=== PATIENT | female | born 1995 | race Two or more races ===

== ENCOUNTER 2020-02-24 21:27 | Emergency (ER) | payer BC ==
[~2020-02-24] VITALS: Ht 160 cm; Wt 64.9 kg
[2020-02-24] MEDS ORDERED: LACTATED RINGER'S 1,000 ML IV ONE ×2 (22:54→23:15)
[2020-02-24 23:14] LABS: Urine Bacteria FEW /hpf (None Seen); Urine Blood Negative /uL (Negative); Urine Mucus FEW (None Seen); Urine WBC 1 /hpf (0 - 5)
[2020-02-24 23:40] LABS: Amphetamine Screen, Urine POSITIVE (NEGATIVE); Barbiturate Scree,Urine NEGATIVE (NEGATIVE); Benzodiazephine Screen, Urine NEGATIVE (NEGATIVE); Cannabinoid Screen, Urine NEGATIVE (NEGATIVE); Cocaine Screen, Urine NEGATIVE (NEGATIVE); Opiate Scree,Urine NEGATIVE (NEGATIVE); Phencyclidine Screen, Urine NEGATIVE (NEGATIVE)
[2020-02-25 00:18] LABS: Basophils # (auto) 0 10 ^3/uL (0-0.2); Basophils % (auto) 0.2 % (0.0-2.0); Eosinophils # (auto) 0 10 ^3/uL (0-0.8); Eosinophils % (auto) 0.5 % (0.0-7.0); Hematocrit 25.4 % (36.0-46.0); Hemoglobin 8.7 g/dL (12.2-16.2); Lymphocytes # (auto) 1.2 10 ^3/uL (0.4-5.4); Lymphocytes % (auto) 17.8 % (10.0-50.0); Mean Corpuscular Hemoglobin 27.1 pg (28.0-32.0); Mean Corpuscular Hgb Conc. 34.3 g/dL (32.0-36.0); Mean Corpuscular Volume 78.9 fL (80.0-100.0); Monocytes # (auto) 0.4 10 ^3/uL (0-1.3); Monocytes % (auto) 6.3 % (0.0-12.0); Neutrophils # (auto) 5.2 10 ^3/uL (1.6-8.6); Neutrophils % (auto) 75.2 % (37.0-80.0); Nucleated Red Blood Cells % 0.4 %; Platelet Count (auto) 196 10^3/uL (140-450); Red Blood Cells 3.22 10^6/uL (4.0-5.20); Red Cell Distribution Width 14.6 % (11.8-14.3); White Blood Cell 6.9 10^3/uL (4.4-10.8)
[2020-02-25 03:56] LABS: Albumin 1.7 g/dL (3.4-5.0); Calcium 7.8 mg/dL (8.5-10.1); Potassium 3.4 mmol/L (3.5-5.1)
[2020-02-25 04:00] LABS: BUN/Creatinine Ratio 27.1; Bilirubin, Total 0.1 mg/dL (0.2-1.0); Total Protein 5.3 g/dL (6.4-8.2)
[2020-02-26 03:07] LABS: Rubella Antibodies, IgG <0.90 index (Immune >0.99)
[2020-02-26 05:06] LABS: RPR Non Reactive (Non Reactive)
== END 2020-02-24 23:36 | disposition home or self-care (01) ==
LOC: ER 21:27
DX: O26.893 Other specified pregnancy related conditions, third trimester (principal); O9A.513 Psychological abuse complicating pregnancy, third trimester; F15.10 Other stimulant abuse, uncomplicated; R10.9 Unspecified abdominal pain; Z3A.33 33 weeks gestation of pregnancy; Z20.828 Contact with and (suspected) exposure to other viral communicable diseases
CPT/HCPCS: 36415; 76805; 80053; 80307; 81001; 85025; 86592; 86703; 86762; 86850; 86900; 86901; 87340; 87426; 99284; C9803; U0003

== ENCOUNTER 2020-02-24 21:44 | Observation (INO) | payer BC, MEDICAID | END 2020-02-25 04:07 | disposition home or self-care (01) | LOC: LDRP 21:44 | PROVIDERS: ADMIT Specialist; ATTEND Specialist | DX: O26.893 Other specified pregnancy related conditions, third trimester (principal); R10.9 Unspecified abdominal pain; O21.2 Late vomiting of pregnancy; O09.33 Supervision of pregnancy with insufficient antenatal care, third trimester; O99.323 Drug use complicating pregnancy, third trimester; F11.90 Opioid use, unspecified, uncomplicated; O99.343 Other mental disorders complicating pregnancy, third trimester; F31.9 Bipolar disorder, unspecified; F41.9 Anxiety disorder, unspecified; F43.10 Post-traumatic stress disorder, unspecified; F20.9 Schizophrenia, unspecified; F12.90 Cannabis use, unspecified, uncomplicated; O99.013 Anemia complicating pregnancy, third trimester; D64.9 Anemia, unspecified; O99.333 Smoking (tobacco) complicating pregnancy, third trimester; F17.210 Nicotine dependence, cigarettes, uncomplicated; Z3A.33 33 weeks gestation of pregnancy | CPT/HCPCS: 59025; 76817; 81002; 94760; 96360; G0378 ==

== ENCOUNTER 2023-11-16 19:40 | Emergency (ER) | payer MEDICAID, OTHER ==
[~2023-11-16] VITALS: Ht 157.5 cm; Wt 65.0 kg
[2023-11-16 20:12] VITALS: BP 114/75; PULSE 79; RESP 18; TEMP 98.7; O2SAT 98
[2023-11-16] MEDS ORDERED: CLOTCRE3 EX (22:21)
== END 2023-11-16 22:42 | disposition home or self-care (01) ==
LOC: ER 19:40
DX: B35.4 Tinea corporis (principal)

== ENCOUNTER 2024-03-02 13:29 | Emergency (ER) | payer MEDICAID ==
[~2024-03-02] VITALS: Ht 157.5 cm; Wt 60.0 kg
[~2024-03-02 13:29] MED LIST: CLOTCRE3 EX
[2024-03-02 14:55] VITALS: BP 99/73; PULSE 69; RESP 16; TEMP 97.8; O2SAT 99
[2024-03-02] MEDS ORDERED: CLOT1CRE78 EX (15:21)
[2024-03-02] MEDS ORDERED: HYDR2.5O TOP (15:21)
--- NOTE | 2024-03-02 15:21 | ED.PDOC ---
History of Present Illness(SKN HPI Comments 28 year old presents for skin rash to the chin x 2 weeks. no other complaint Chief Complaint: Rash Time Seen by MD: 13:59 Primary Care Provider: ? History of Present Illness: Nurses Notes, Medications, Allergies Allergies: Coded Allergies: NO KNOWN ALLERGIES (Unverified , 02/24/20) Home Meds Active Scripts Clotrimazole W/ Betamethasone (Clotrimazole/Betamethason 1-0.05 %) 1 Cre Cre, 1 CRE EX BID for 14 Days, #15 GRAMS Apply thin layer to affected area twice daily times 14 days. Prov:SHANON TURNER [facility] 11/16/23 Information Source: Patient Mode of Arrival: Ambulatory Past Medical History PAST MEDICAL HISTORY: Denies Surgical History: Denies all surgeries EMERGENCY DOCTOR History: Denies all EMERGENCY DOCTOR Hx, No Pertinent EMERGENCY DOCTOR History Family History Family History: Reviewed,noncontributory to illness Social History Smoker: Non-Smoker Alcohol: Denies ETOH Use Drugs: Denies Drug Use All Other Systems: Reviewed and Negative (per hpi) Physical Exam General Appearance: No Apparent Distress, Normal HEENT: Normal ENT Inspection, Pharynx Normal, TMs Normal Neck: Full Range of Motion, Non-Tender, Normal, Normal Inspection Respiratory: Chest Non-Tender, Lungs Clear, No Accessory Muscle Use, No Respiratory Distress, Normal Breath Sounds Cardiovascular: No Edema, No JVD, No Murmur, No Gallop, Normal Peripheral Pulses, Regular Rate/Rhythm Breast Exam: Deferred Gastrointestinal: No Organomegaly, Non Tender, No Pulsatile Mass, Normal Bowel Sounds, Soft Genitalia: Deferred Pelvic: Deferred Rectal: Deferred Extremities: No calf tenderness, Normal capillary refill, Normal inspection, Normal range of motion, Non-tender, No pedal edema Musculoskeletal : Apperance: Normal Neurologic: Alert, electrotyper helper II-XII nml as Tested, No Motor Deficits, Normal Affect, Normal Mood, No Sensory Deficits Cerebellar Function: Normal Reflexes: Normal Skin: Dry, Normal Color, Warm Lymphatic: No Adenopathy Was a procedure done? Was a procedure done?: No Differential Diagnosis (INTG) Differential Diagnosis: Atopic dermatitis X-Ray, Labs, Meds, VS Vital Signs Date Time Temp Pulse Resp B/P (MAP) Pulse Ox O2 Delivery O2 Flow Rate FiO2 03/02/24 14:55 97.8 69 16 99/73 (82) 99 97.8 03/02/24 14:55 69 16 99 Room Air 03/02/24 13:38 97.8 69 16 99/73 (82) 99 X-Ray, Labs, Meds, VS Comment History and findings consistent with atopic dermatitis Patient stable vital signs stable Trial of triamcinolone as prescribed Advised patient to continue with moisturizer Daily bathing or showering should be limited to about 5 minutes Apply moisturizers soon after bathing to improve skin hydration Use bland moisturizers with few ingredients and without perfumes or fragrances to avoid irritant or allergic reactions Replace soaps and bubble bath and shower gels with nonsoap fragrance free cleansers and neutral to low pH to help prevent irritant or allergic reaction Time of 1ST Reevaluation: 15:16 Reevaluation 1ST: Improved Patient Education/Counseling: Diagnosis, Treatment Family Education/Counseling: Diagnosis, Treatment Departure 1 Departure Time of Disposition: 15:20 Impression: Primary Impression: Rash Disposition: HOME / SELF CARE / HOMELESS Condition: Stable e-Prescriptions Clotrimazole (Clotrimazole) 1 % Cre 1 % EX DAILY for 30 Days, #30 GRAMS 0 Refills Prov: JACKI MERCER NP 03/02/24 Hydrocortisone Base (Hydrocortisone) 2.5 % Oin 1 APPLIC TOP BID for 5 Days, #30 GRAMS 0 Refills Prov: JACKI MERCER NP 03/02/24 Discharged With: Self Critical Care Note Critical Care Time?: No Stability Stability form required: No Heart Score Heart Score: Heart Score Response (Comments) Value History N/A 0 EKG N/A 0 Age N/A 0 Risk Factors N/A 0 Troponin N/A 0 Total 0 JACKI MERCER NP Mar 02, 2024 15:21
== END 2024-03-02 15:21 | disposition home or self-care (01) ==
LOC: ER 13:29
DX: R21 Rash and other nonspecific skin eruption (principal); Z79.899 Other long term (current) drug therapy

== ENCOUNTER 2024-08-23 15:49 | Emergency (ER) | payer MEDICAID ==
[~2024-08-23] VITALS: Ht 157.5 cm; Wt 58.4 kg
[~2024-08-23 15:49] MED LIST changes: +CLOT1CRE78 EX; +HYDR2.5O TOP
--- NOTE | 2024-08-23 15:59 | ED.PDOC ---
SOB-HPI HPI Comments 29-year-old female with no reported PMHx presents with a chief complaint of cough x onset 2 days. Patient states that her cough is productive with yellow phlegm. Patient does endorse having sick contacts that she was around recently. Patient is sating at 100% on room air and is afebrile. Chief Complaint: Cough Time Seen by MD: 15:52 Primary Care Provider: ? Reviewed notes: Medications, Allergies Information Source: Patient Mode of Arrival: Ambulatory Severity: Moderate Timing: Days Duration: Since onset Context: Contact Exposure PE Risk Factors: None History of: None Prehospital treatment: None Associated Signs and Symptoms: Cough If cough with SOB: Productive, Yellow Past Medical History PAST MEDICAL HISTORY: Denies Surgical History: Denies all surgeries COAL PICKER History: Denies all COAL PICKER Hx, No Pertinent COAL PICKER History Family History Family History: Reviewed,noncontributory to illness Social History Smoker: Cigarettes Alcohol: Denies ETOH Use Drugs: Denies Drug Use Lives In: Unknown Constitutional: denies: chills, diaphoresis, fatigue, fever, malaise, sweats, weakness, others EENTM: denies: blurred vision, double vision, ear bleeding, ear discharge, ear drainage, ear pain, ear ringing, eye pain, eye redness, hearing loss, mouth pain, mouth swelling, nasal discharge, nose bleeding, nose congestion, nose pain, photophobia, tearing, throat pain, throat swelling, voice changes, others Respiratory: reports: cough; denies: hemoptysis, orthopnea, SOB at rest, shortness of breath, SOB with excertion, stridor, wheezing, others Cardiovascular: denies: chest pain, dizzy spells, diaphoresis, Dyspnea on exertion, edema, irregular heart beat, left arm pain, lightheadedness, palpitations, PND, syncope, others Gastrointestinal: denies: abdomen distended, abdominal pain, blood streaked bowels, constipated, diarrhea, dysphagia, difficulty swallowing, hematemesis, melena, nausea, poor appetite, poor fluid intake, rectal bleeding, rectal pain, vomiting, others Genitourinary: denies: abnormal vagina bleeding, burning, dyspareunia, dysuria, flank pain, frequency, hematuria, incontinence, pain, , vagina discharge, urgency, others Neurological: denies: dizziness, fainting, headache, left sided numbness, left sided weakness, numbness, paresthesia, pre-existing deficit, right sided n umbness, right sided weakness, seizure, speech problems, tingling, tremors, weakness, others Musculoskeletal: denies: back pain, gout, joint pain, joint swelling, muscle pain, muscle stiffness, neck pain, others Integumetry: denies: bruises, change in color, change in hair/nails, dryness, laceration, lesions, lumps, rash, wounds, others Allergic/Immunocompromised: denies: Difficulty Healing, Frequent Infections, Hives, Itching, others Hematologic/Lymphatic: denies: anemia, blood clots, easy bleeding, easy bruising, swollen glands, others Endocrine: denies: excessive hunger, excessive sweating, excessive thirst, excessive urination, flushing, intolerance to cold, intolerance to heat, unexplained weight gain, unexplained weight loss, others Psychiatric: denies: anxiety, bipolar disorder, depression, hopeless, panic disorder, schizophrenia, sleepless, suicidal, others All Other Systems: Reviewed and Negative Physical Exam General Appearance: No Apparent Distress, Normal HEENT: Normal ENT Inspection, Pharynx Normal, TMs Normal Neck: Full Range of Motion, Non-Tender, Normal, Normal Inspection Respiratory: Chest Non-Tender, Lungs Clear, No Accessory Muscle Use, No Respiratory Distress, Normal Breath Sounds Cardiovascular: No Edema, No JVD, No Murmur, No Gallop, Normal Peripheral Pulses, Regular Rate/Rhythm Breast Exam: Deferred Gastrointestinal: No Organomegaly, Non Tender, No Pulsatile Mass, Normal Bowel Sounds, Soft Genitalia: Deferred Pelvic: Deferred Rectal: Deferred Extremities: No calf tenderness, Normal capillary refill, Normal inspection, Normal range of motion, Non-tender, No pedal edema Musculoskeletal : Apperance: Normal Neurologic: Alert, embedded systems software engineer II-XII nml as Tested, No Motor Deficits, Normal Affect, Normal Mood, No Sensory Deficits Cerebellar Function: Normal Reflexes: Normal Skin: Dry, Normal Color, Warm Lymphatic: No Adenopathy Was a procedure done? Was a procedure done?: No Differential Dx Differential Diagnosis: Anxiety, Asthma, Bronchitis, COPD, Panic Attack, Pneumonia, Pneumothorax, Respiratory Distress, Sinusitis, Allergic Rhinitis, Pharyngitis, URI X-Ray, Labs, Meds, VS Vital Signs Date Time Temp Pulse Resp B/P (MAP) Pulse Ox O2 Delivery O2 Flow Rate FiO2 08/23/24 15:57 98.8 111 17 117/64 (81) 100 98.8 08/23/24 15:56 Room Air* 0 21 Time of 1ST Reevaluation: 16:22 Reevaluation 1ST: Improved Patient Education/Counseling: Diagnosis, Treatment, Prognosis, Need For Follow Up Family Education/Counseling: No Family Present Comments this is a well appearing healthy young lady with URI symptoms but a normal exam and normal VSS. i will start her on tesselon and claritin D SEPSIS Sepsis Screen Vital Signs Date Time Temp Pulse Resp B/P (MAP) Pulse Ox O2 Delivery O2 Flow Rate FiO2 08/23/24 15:57 98.8 111 17 117/64 (81) 100 98.8 08/23/24 15:56 Room Air* 0 21 Departure 1 Departure Time of Disposition: 16:22 Impression: Primary Impression: URI (upper respiratory infection) Qualified Codes: J06.9 - Acute upper respiratory infection, unspecified Disposition: 01 HOME / SELF CARE / HOMELESS Condition: Good e-Prescriptions Loratadine & Pseudoephedrine (Claritin-D 24 Hour 10-240 mg) 1 Tab Tab 1 TAB PO DAILY PRN, #5 TAB Prov: CARLOS LYNN MD 08/23/24 Benzonatate (Benzonatate) 200 Mg Cap 1 CAP PO TID PRN, #30 CAP Prov: CARLOS LYNN MD 08/23/24 Discharged With: Self Critical Care Note Critical Care Time?: No Stability Stability form required: No I personally scribed for CARLOS LYNN MD ([email or web address]) on 08/23/24 at 15:59. Electronically submitted by Robel Irene ([email or web address]). CARLOS LYNN MD Aug 23, 2024 15:59
[2024-08-23] MEDS ORDERED: BENZ200C64 PO (16:23)
[2024-08-23] MEDS ORDERED: LORA-1130 PO (16:23)
[2024-08-23 17:25] VITALS: BP 136/74; PULSE 68; RESP 16; TEMP 98.9; O2SAT 98
== END 2024-08-23 17:30 | disposition home or self-care (01) ==
LOC: ER 15:49
DX: J06.9 Acute upper respiratory infection, unspecified (principal); F17.210 Nicotine dependence, cigarettes, uncomplicated

== ENCOUNTER 2024-12-18 02:13 | Emergency (ER) | payer MEDICAID ==
[~2024-12-18] VITALS: Ht 157.5 cm; Wt 59.0 kg
[~2024-12-18 02:13] MED LIST changes: +BENZ200C64 PO; +LORA-1130 PO
--- NOTE | 2024-12-18 02:57 | ED.PDOC ---
History of Present Illness(SKN HPI Comments s Pt c/o rash x3 weeks between buttocks. Pt states drainage to the area. Denies pain, states "irritation". Pt states she she homeless and sleeps outside. Pt noticed increase in smell to area. denies fevers, chills, n/v/d. Chief Complaint: Rash Time Seen by MD: 02:21 Primary Care Provider: ? History of Present Illness: Nurses Notes, Medications, Allergies Allergies: Coded Allergies: NO KNOWN ALLERGIES (Unverified , 02/24/20) Home Meds Active Scripts Loratadine & Pseudoephedrine (Claritin-D 24 Hour 10-240 mg) 1 Tab Tab, 1 TAB PO DAILY PRN, #5 TAB Prov:CARLOS LYNN MD 08/23/24 Benzonatate (Benzonatate) 200 Mg Cap, 1 CAP PO TID PRN, #30 CAP Prov:CARLOS LYNN MD 08/23/24 Clotrimazole (Clotrimazole) 1 % Cre, 1 % EX DAILY for 30 Days, #30 GRAMS 0 Refills Prov:JACKI MERCER NP 03/02/24 Hydrocortisone Base (Hydrocortisone) 2.5 % Oin, 1 APPLIC TOP BID for 5 Days, #30 GRAMS 0 Refills Prov:JACKI MERCER NP 03/02/24 Clotrimazole W/ Betamethasone (Clotrimazole/Betamethason 1-0.05 %) 1 Cre Cre, 1 CRE EX BID for 14 Days, #15 GRAMS Apply thin layer to affected area twice daily times 14 days. Prov:SHANON TURNER 11/16/23 Information Source: Patient Mode of Arrival: Ambulatory Past Medical History PAST MEDICAL HISTORY: Denies Surgical History: Denies all surgeries VIDEOTAPE SALES REPRESENTATIVE History: Denies all VIDEOTAPE SALES REPRESENTATIVE Hx, No Pertinent VIDEOTAPE SALES REPRESENTATIVE History Family History Family History: Reviewed,noncontributory to illness Social History Smoker: Cigarettes Alcohol: Denies ETOH Use Drugs: Denies Drug Use Lives In: Unknown All Other Systems: Reviewed and Negative (see hpi) Physical Exam General Appearance: No Apparent Distress, Normal HEENT: Normal ENT Inspection, Pharynx Normal, TMs Normal Neck: Full Range of Motion, Non-Tender Respiratory: Lungs Clear, No Respiratory Distress, Normal Breath Sounds Cardiovascular: No Edema, No JVD, No Murmur, No Gallop, Normal Peripheral Pul ses, Regular Rate/Rhythm Breast Exam: Deferred Gastrointestinal: No Organomegaly, Non Tender, No Pulsatile Mass, Normal Bowel Sounds, Soft Genitalia: Deferred Pelvic: Deferred Rectal: Deferred Extremities: Normal capillary refill, Normal range of motion, No pedal edema Musculoskeletal : Apperance: Normal Neurologic: Alert, No Motor Deficits, Normal Affect, Normal Mood, No Sensory Deficits Cerebellar Function: Normal Reflexes: NOT DONE Skin: Dry, Normal Color, Warm, Wounds (Several nickel size superficial abrasions surrounding erythema no noted drainage noted excoriations) Lymphatic: No Adenopathy Was a procedure done? Was a procedure done?: No Differential Diagnosis (INTG) Differential Diagnosis: Cellulitis Differential Diagnosis: Abscess, Candidiasis, Contact Dermatitis, Impetigo, Scabies, Tinea, Urticaria X-Ray, Labs, Meds, VS Vital Signs Date Time Temp Pulse Resp B/P (MAP) Pulse Ox O2 Delivery O2 Flow Rate FiO2 12/18/24 02:17 97.0 107 17 101/74 99 97.0 Time of 1ST Reevaluation: 20:46 Reevaluation 1ST: Unchanged Time of 2ND Reevaluation: 03:09 Reevaluation 2ND: Improved Patient Education/Counseling: Diagnosis, Treatment, Need For Follow Up Family Education/Counseling: No Family Present SEPSIS Sepsis Screen Date sepsis recognized/suspect: Dec 18, 2024 Time Sepsis recognized/suspect: 221 Recent Procedure: No On Antibiotic Therapy: No Respiratory Rate >20: No Heart Rate >90: Yes Temp<36 C (96.8 F) or >38.3 C: No SBP <90 or MAP <65 mmHG: No New Acute Mental Status Change: No Is the patient on CPAP, BIPAP,: No Vital Signs Date Time Temp Pulse Resp B/P (MAP) Pulse Ox O2 Delivery O2 Flow Rate FiO2 12/18/24 02:17 97.0 107 17 101/74 99 97.0 Departure 1 Departure Time of Disposition: 03:07 Impression: Primary Impression: Wound infection Disposition: 01 HOME / SELF CARE / HOMELESS Condition: Stable e-Prescriptions Hydroxyzine Hcl (Hydroxyzine Hcl) 50 Mg Tab 1 TAB PO TID PRN for 7 Days, #21 TAB Prov: SHANON TURNER 12/18/24 Doxycycline Hyclate (Doxycycline Hyclate) 100 Mg Cap 100 MG PO BID for 7 Days, #14 CAP Prov: SHANON TURNER 12/18/24 Discharged With: Self Critical Care Note Critical Care Time?: No Stability Stability form required: SHANON Solitario Dec 18, 2024 02:57
[2024-12-18] MEDS ORDERED: DOXY100C4 PO (03:09)
[2024-12-18] MEDS ORDERED: HYDR50TA69 PO (03:09)
[2024-12-18] MEDS: hydrOXYzine 25 MG TAB or CAP PO ONE (05:04)
[2024-12-18] MEDS: cefTRIAXone SOD 1,000 MG VL IM ONE (05:04)
[2024-12-18 05:08] VITALS: BP 130/82; PULSE 90; RESP 18; TEMP 98.4; O2SAT 99
== END 2024-12-18 05:14 | disposition home or self-care (01) ==
LOC: ER 02:13
DX: L08.9 Local infection of the skin and subcutaneous tissue, unspecified (principal); F17.210 Nicotine dependence, cigarettes, uncomplicated
CPT/HCPCS: 96372; 99283; J0696